=== PATIENT | female | born 1980 | race Two or more races ===

== ENCOUNTER → 2017-12-31 | Outpatient (CLI) | payer OTHER | END | disposition home or self-care (01) | LOC: CVU 07:49 | PROVIDERS: ATTEND Internal Medicine Cardiovascular Disease | DX: R06.02 Shortness of breath (principal); R07.89 Other chest pain; R00.2 Palpitations | CPT/HCPCS: 93306 ==

== ENCOUNTER 2018-04-12 19:39 | Emergency (ER) | payer SELFPAY ==
[~2018-04-12] VITALS: Ht 154.9 cm; Wt 72.5 kg
[2018-04-12 19:44] VITALS: BP 113/78
[2018-04-12] MEDS ORDERED: LIDOCAINE-MPF 2% ,5ML ONE (20:07)
[2018-04-12] MEDS ORDERED: LIDOCAINE-MPF 1%, 5ML INFIL ONE (20:30)
[2018-04-12] MEDS ORDERED: SULF-169 PO (20:35)
[2018-04-12] MEDS ORDERED: ESCI10TA PO (20:35)
[2018-04-12] MEDS ORDERED: HYDR25TA11 PO (20:35)
== END 2018-04-12 20:59 | disposition home or self-care (01) ==
LOC: ED 20:30
DX: L02.212 Cutaneous abscess of back [any part, except buttock and flank] (principal); K21.9 Gastro-esophageal reflux disease without esophagitis; Z79.899 Other long term (current) drug therapy
CPT/HCPCS: 10060